=== PATIENT | male | born 1950 | race African-American/Black ===

== ENCOUNTER 2020-10-11 13:13 | Observation (INO) ==
[2020-10-11 14:03] LABS: ABS Eosinophils 0.2 10^3/ul (0-0.6); ABS Lymphocytes 2.1 10^3/ul (1.0-4.8); ABS Monocytes 0.6 10^3/ul (0-0.8); ABS Neutrophils 4.1 10^3/ul (1.5-7.7); Eosinophil % 2.5 %; Hematocrit 41 % (42-52); Hemoglobin 14.3 g/dL (14.0-18.0); Lymphocyte % 29.5 %; Mean Corpuscular HGB Conc 35 g/dL (31-36); Mean Corpuscular Hemoglobin 30 pg (27-31); Mean Corpuscular Volume 86 fL (80-94); Mean Platelet Volume 7.4 fL (7.4-10.4); Platelet Count 239 10^3/uL (150-450); Red Blood Count 4.77 10^6 /uL (4.18-5.48); Red Cell Distribution Width 13 % (10-15)
[2020-10-11 14:16] LABS: Albumin 4.1 g/dL (3.2-5.2); Albumin/Globulin Ratio 1.1 (1-3); BUN/Creatinine Ratio 15.7 (8-20); Calcium 9.5 mg/dL (8.6-10.3); EGFR African American 86.9 (>60); EGFR Non-African American 71.8 (>60); Globulin 3.9 g/dL (2-4); Magnesium 1.8 mg/dL (1.9-2.7); Potassium 3.3 mmol/L (3.5-5.0); Total Bilirubin 0.6 mg/dL (0.2-1.0)
[2020-10-11 14:18] LABS: Troponin I 0.01 ng/mL (<0.03)
[2020-10-11 14:20] LABS: CKMB ng/mL 1.5 ng/mL (0.6-6.3)
[2020-10-11 14:49] LABS: TSH Ultra Thyroid Stim Horm 2.44 mcIU/mL (0.34-5.60)
[2020-10-11] MEDS ORDERED: Potassium Chlor 20 meq TAB.ER PO ONE (15:18)
[2020-10-11 16:30] LABS: Urine Appearance Clear; Urine Bilirubin Negative (Negative); Urine Blood Negative (Negative); Urine Color Yellow; Urine Glucose Negative (Negative); Urine Ketones Negative (Negative); Urine Nitrite Negative (Negative); Urine Protein Negative (Negative); Urine Specific Gravity 1.008 (1.010-1.030); Urine Urobilinogen Negative (Negative)
[2020-10-11 17:29] LABS: Troponin I 0.04 ng/mL (<0.03)
[2020-10-11] MEDS ORDERED: Magnesium Sulfate 2 gm BAG 2 GM/50 ML BAG IVPB ONE (19:56)
[2020-10-11] MEDS ORDERED: Latanoprost 0.005% 2.5 ml BTL BOTH EYES SCH (21:00)
[2020-10-11] MEDS ORDERED: Enoxaparin 40 MG/0.4 ML SYR SUBCUT SCH (21:00)
[2020-10-12 06:38] LABS: BUN/Creatinine Ratio 17.2 (8-20); Calcium 9.2 mg/dL (8.6-10.3); EGFR African American 104.4 (>60); EGFR Non-African American 86.3 (>60); Potassium 3.7 mmol/L (3.5-5.0)
[2020-10-12] MEDS ORDERED: Aspirin EC 81 mg TAB.EC (enteric coated) PO SCH (09:00)
[2020-10-12] MEDS ORDERED: Perflutren Lipid Microsphere 3 ML VIAL ONE (13:53)
[2020-10-12 20:14] VITALS: BP 144/68
== END 2020-10-12 18:30 | disposition home or self-care (01) ==
LOC: MEDTELE 13:13 → ED 13:13 → MEDTELE 21:21
PROVIDERS: ADMIT Internal Medicine; ATTEND Hospitalist

== ENCOUNTER 2020-12-13 07:55 | Observation (INO) ==
[2020-12-13] MEDS ORDERED: Midazolam 5 mg/5 ml VIAL 1 mg/ml 5 ml VIAL (5 mg) ONE (08:08)
[2020-12-13] MEDS ORDERED: fentaNYL 100 mcg/2 ml 50 MCG/ML VIAL ONE (08:08)
[2020-12-13] MEDS ORDERED: Heparin 2 UNITS/ML 1000 mls 2,000 ML IV ONE (08:09)
[2020-12-13] MEDS ORDERED: Iohexol 350 (CONTRAST) 200 ML MDV IV ONE (08:09)
[2020-12-13] MEDS ORDERED: Lidocaine 1% VIAL 10 MG/ML VIAL ONE (08:09)
[2020-12-13] MEDS ORDERED: VERAPAMIL 2.5 MG/ML 2 ML VIAL ** 5 mg/2 ml ONE (08:10)
[2020-12-13] MEDS ORDERED: Heparin 1,000 UNIT/ML 10 ml (10,000 UNITS) CATHLAB/DIALYSIS ONE (08:10)
[2020-12-13] MEDS ORDERED: nitroGLYCERIN DRIP 25,000 MCG/250 ML BTL ONE (08:10)
[2020-12-13] MEDS ORDERED: Iodixanol 320 (CONTRAST) 100 ML SDV ONE ×3 (09:21→10:04)
[2020-12-13] MEDS ORDERED: Bivalirudin 250 MG VIAL ONE (09:50)
[2020-12-13] MEDS ORDERED: NS 0.9% 1000 ml BAG 1,000 ML IV SCH (10:30)
[2020-12-13 16:47] LABS: Calcium 8.7 mg/dL (8.6-10.3); EGFR African American 75.6 (>60); EGFR Non-African American 62.5 (>60); Phosphorus 3.5 mg/dL (2.5-5.0); Potassium 3.2 mmol/L (3.5-5.0)
[2020-12-13] MEDS ORDERED: Potassium Chlor 20 meq TAB.ER PO ONE (16:55)
[2020-12-13] MEDS: Saline NASAL SPRAY 0.65% BTL BOTH NARES PRN (22:49)
[2020-12-14 06:47] LABS: Calcium 8.8 mg/dL (8.6-10.3); EGFR African American 93.2 (>60); Potassium 3.7 mmol/L (3.5-5.0)
[2020-12-14 08:32] LABS: ABS Basophils 0.1 10^3/ul (0-0.2); ABS Eosinophils 0.2 10^3/ul (0-0.6); ABS Lymphocytes 2.4 10^3/ul (1.0-4.8); ABS Monocytes 0.5 10^3/ul (0-0.8); ABS Neutrophils 5.1 10^3/ul (1.5-7.7); Hematocrit 36 % (42-52); Hemoglobin 12.4 g/dL (14.0-18.0); Lymphocyte % 28.8 %; Mean Corpuscular HGB Conc 35 g/dL (31-36); Mean Corpuscular Hemoglobin 31 pg (27-31); Mean Corpuscular Volume 89 fL (80-94); Mean Platelet Volume 7.4 fL (7.4-10.4); Nucleated Red Blood Cells % 0.1; Platelet Count 249 10^3/uL (150-450); Red Blood Count 4.03 10^6 /uL (4.18-5.48); Red Cell Distribution Width 13 % (10-15); White Blood Count 8.3 10^3/uL (3.5-10.8)
[2020-12-14 08:44] LABS: Albumin 3.5 g/dL (3.2-5.2); Albumin/Globulin Ratio 0.9 (1-3); Globulin 3.7 g/dL (2-4); HDL Cholesterol 33.9 mg/dL; Total Bilirubin 0.9 mg/dL (0.2-1.0); Total Protein 7.2 g/dL (6.4-8.9)
[2020-12-14] MEDS ORDERED: Potassium Chloride LIQUID 20 MEQ/15 ML LIQUID PO ONE (08:46)
[2020-12-14] MEDS ORDERED: Potassium Chlor 20 meq TAB.ER PO ONE (09:00)
[2020-12-14] MEDS: Saline NASAL SPRAY 0.65% BTL BOTH NARES PRN (09:11)
[2020-12-14 09:20] LABS: Magnesium 1.9 mg/dL (1.9-2.7); Phosphorus 3.1 mg/dL (2.5-5.0)
[2020-12-14 13:03] VITALS: BP 154/79
== END 2020-12-14 12:15 | disposition home or self-care (01) ==
LOC: CHICATH 07:55 → INTOOBSV 10:31 → ICU 10:31